=== PATIENT | female | born 1955 | race Caucasian/White ===

== ENCOUNTER 2017-05-11 16:38 | Emergency (ER) | payer OTHER, BC ==
--- NOTE | 2017-05-11 18:00 | EDM.PDOC ---
ED HPI GENERAL MEDICAL PROBLEM - General Chief Complaint: Lower Extremity Injury/Pain Stated Complaint: PT HURT LT KNEE AT WORK Time Seen by Provider: 05/11/17 16:57 Source of Information: Reports: Patient History Limitations: Reports: No Limitations - History of Present Illness INITIAL COMMENTS - FREE TEXT/NARRATIVE: History of present illness: []Patient was twirling a hula hoop on her right leg while holding her left leg up. She lost her balance and slipped almost doing the splits. She had sudden pain on her left medial knee. She is able to bear weight and walk however when she puts any twisting motion while standing she has severe pain in the medial part of her knee radiating to her thigh or calf. Review of systems: As per history of present illness and below otherwise all systems reviewed and negative. Past medical history: As per history of present illness and as reviewed below otherwise noncontributory. Surgical history: As per history of present illness and as reviewed below otherwise noncontributory. Social history: No reported history of drug or alcohol abuse. Family history: As per history of present illness and as reviewed below otherwise noncontributory. Physical exam: General: Well developed, well nourished in NAD HEENT: Atraumatic, normocephalic, pupils reactive, negative for conjunctival pallor or scleral icterus, mucous membranes moist, throat clear, neck supple, nontender, trachea midline. Lungs: Clear to auscultation, breath sounds equal bilaterally, chest nontender. Heart: S1S2, regular, negative for clicks, rubs, or JVD. Abdomen: Soft, nondistended, nontender. Negative for masses or hepatosplenomegaly. Negative for costovertebral tenderness. Pelvis: Stable nontender. Genitourinary: Deferred. Rectal: Deferred. Extremities: Atraumatic, negative for cords or calf pain. Neurovascular unremarkable. Neuro: Awake, alert, oriented. Cranial nerves II through XII unremarkable. Cerebellum unremarkable. Motor and sensory unremarkable throughout. Exam nonfocal. Diagnostics: []X-ray knee negative Therapeutics: []Knee immobilizer Impression: []Soft tissue injury left knee left Plan: []Knee immobilizer, anti-inflammatories and ice follow-up with Dr. Bartlett Definitive disposition and diagnosis as appropriate pending reevaluation and review of above. Left Posterior Knee Pain Score (Numeric/FACES): 5 - Related Data Allergies Allergy/AdvReac Type Severity Reaction Status Date / Time Penicillins Allergy Cannot Verified 05/11/17 17:20 Remember Home Meds: Home Meds Aspirin 81 mg PO DAILY 05/11/17 [History] Lisinopril 10 mg PO DAILY 05/11/17 [History] Meloxicam 5 g PO DAILY 05/11/17 [History] Review of Systems - Review of Systems Review Of Systems: See Below ED EXAM, GENERAL - Physical Exam Exam: See Below (See history of present illness) Course - Vital Signs Last Recorded V/S: Last Vital Signs Temp 36.4 C 05/11/17 17:17 Pulse 91 05/11/17 17:17 Resp 19 05/11/17 17:17 BP 143/72 H 05/11/17 17:17 Pulse Ox 97 05/11/17 17:17 - Orders/Labs/Meds Orders: Active Orders 24 hr Category Date Time Status Immobilizer [RC] ASDIRECTED Care 05/11/17 17:43 Active Knee 3V Lt [CR] Stat Exams 05/11/17 17:29 Taken Departure - Departure Time of Disposition: 18:05 Disposition: Home, Self-Care 01 Condition: Good Clinical Impression: Left knee sprain Qualifiers: Encounter type: initial encounter Involved ligament of knee: unspecified ligament Qualified Code(s): S83.92XA - Sprain of unspecified site of left knee, initial encounter - Discharge Information Referrals: PCP,None [Primary Care Provider] - Forms: ED Department Discharge Additional Instructions: The following information is given to patients seen in the emergency department who are being discharged to home. This information is to outline your options for follow-up care. We provide all patients seen in our emergency department with a follow-up referral. The need for follow-up, as well as the timing and circumstances, are variable depending upon the specifics of your emergency department visit. If you don't have a primary care physician on staff, we will provide you with a referral. We always advise you to contact your personal physician following an emergency department visit to inform them of the circumstance of the visit and for follow-up with them and/or the need for any referrals to a consulting specialist. The emergency department will also refer you to a specialist when appropriate. This referral assures that you have the opportunity for follow-up care with a specialist. All of these measure are taken in an effort to provide you with optimal care, which includes your follow-up. Under all circumstances we always encourage you to contact your private physician who remains a resource for coordinating your care. When calling for follow-up care, please make the office aware that this follow-up is from your recent emergency room visit. If for any reason you are refused follow-up, please contact the [facility] at and asked to speak to the emergency department charge nurse. Ice, Motrin for pain and wear immobilizer, light duty until evaluated by orthopedic. Follow-up with orthopedics: [facility] [address], [address] [place] [address] - My Orders Last 24 Hours: My Active Orders 05/11/17 17:29 Knee 3V Lt [CR] Stat 05/11/17 17:43 Immobilizer [RC] ASDIRECTED - Assessment/Plan Last 24 Hours: My Active Orders 05/11/17 17:29 Knee 3V Lt [CR] Stat 05/11/17 17:43 Immobilizer [RC] ASDIRECTED
[2017-05-11 18:24] VITALS: BP 133/73
--- NOTE | 2017-05-12 10:42 | CR ---
EXAM DATE: 05/11/17 PATIENT'S AGE: 62 [facility] Facility: [place], [place] Site . Site : [id number] Study: XRay Knee Left [id number]/19/2017 5:58:36 PM Ordering Physician: Oscar Lester Final Report: INDICATION: Twisting injury. TECHNIQUE: Knee radiographs 3 views COMPARISON: None FINDINGS: Bones: Alignment is normal. No acute fractures or aggressive osseous lesions seen. Joint spaces: No significant joint effusion is seen. The joint spaces of the medial, lateral, and patellofemoral compartments are unremarkable. Soft tissues: Unremarkable. No radiopaque foreign bodies are noted. IMPRESSION: 1. No acute osseous injuries are identified. Dictated by Jarret Valerio MD @ 05/11/2017 6:35:00 PM Dictated by: Jarret Valerio MD @ 05/11/2017 18:35:11 (Electronic Signature) Report Signed by Proxy. [facility] SERVICES[facility]hoebe
== END 2017-05-11 18:20 | disposition home or self-care (01) ==
LOC: MW.ED 16:38
DX: S83.92XA Sprain of unspecified site of left knee, initial encounter (principal); Z79.82 Long term (current) use of aspirin; Z79.899 Other long term (current) drug therapy; Z88.0 Allergy status to penicillin; X58.XXXA Exposure to other specified factors, initial encounter; Y93.89 Activity, other specified; Y99.0 Civilian activity done for income or pay
CPT/HCPCS: 73562-26-LT; 73562-LT; 99282; 99283

== ENCOUNTER 2017-07-19 11:31 | Day surgery (SDC) | payer OTHER ==
[~2017-07-19 11:31] MED LIST: Acetaminophen/HYDROcodone 325-5 MG Tab PO PRN; Clindamycin Phosphate in D5W 600 MG in Premix Bag 50 BAG IV SCH; Lactated Ringers 1,000 ML IV SCH
[2017-07-19] MEDS ORDERED: fentaNYL 100 MCG/2 ML SDV ONE (11:47)
[2017-07-19] MEDS ORDERED: Propofol 200 MG/20 ML SDV ONE (11:47)
[2017-07-19] MEDS ORDERED: Midazolam 1 MG/ML 2 ML SDV ONE (11:48)
[2017-07-19] MEDS ORDERED: Dexamethasone 4 MG/ML 5 ML MDV ONE (11:48)
[2017-07-19] MEDS ORDERED: Ondansetron 4 MG/2 ML SDV ONE (11:48)
--- NOTE | 2017-07-19 12:08 | PCM.PREANE ---
Preanesthetic Assessment - Anesthesia/Transfusion/Family Hx Anesthesia History: Prior Anesthesia Without Reaction Family History of Anesthesia Reaction: No Transfusion History: No Prior Transfusion(s) - Review of Systems General: No Symptoms Pulmonary: No Symptoms Cardiovascular: No Symptoms Gastrointestinal: No Symptoms Neurological: No Symptoms Other: Reports: None - Physical Assessment NPO Status Date: 07/18/17 Height: 1.57 m Weight: 79.379 kg ASA Class: 2 Mental Status: Alert & Oriented x3 Airway Class: Mallampati = 2 Dentition: Reports: Normal Dentition ROM/Head Extension: Full Lungs: Clear to Auscultation, Normal Respiratory Effort Cardiovascular: Regular Rate, Regular Rhythm - Allergies Allergies/Adverse Reactions: Allergies Allergy/AdvReac Type Severity Reaction Status Date / Time Penicillins Allergy Cannot Verified 07/13/17 13:57 Remember - Anesthesia Plan Pre-Op Medication Ordered: None - Acknowledgements Anesthesia Type Planned: General Anesthesia Pt an Appropriate Candidate for the Planned Anesthesia: Yes Alternatives and Risks of Anesthesia Discussed w Pt/Guardian: Yes Pt/Guardian Understands and Agrees with Anesthesia Plan: Yes Additional Comments: PMH: htn, seasonal allergies, hx of menieres PreAnesthesia Questionnaire - Past Health History Medical/Surgical History: Denies Medical/Surgical History Other HEENT History: wears glasses Cardiovascular History: Reports: Hypertension Genitourinary History: Reports: None 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 Musculoskeletal History: Reports: Arthritis, Other (See Below) Other Musculoskeletal History: has had multiple cortisone injections for bursitis Endocrine/Metabolic History: Reports: Obesity/BMI 30+ - Past Surgical History HEENT Surgical History: Reports: Naso-Sinus Surgery Female Surgical History: Reports: Section, Hysterectomy, Salpingo- Oophorectomy - SUBSTANCE USE Smoking Status *Q: Never Smoker Second Hand Smoke Exposure: No Recreational Drug Use History: No - HOME MEDS Home Medications: Home Meds Aspirin 81 mg PO DAILY 05/11/17 [History] Lisinopril 10 mg PO DAILY 05/11/17 [History] Meloxicam 15 mg PO DAILY 05/11/17 [History] - CURRENT (IN HOUSE) MEDS Current Meds: Current Medications Hydrocodone Bitart/Acetaminophen ([place] 325-5 Mg) 1 - 2 tab PO Q4H PRN PRN Reason: Pain Lactated Ringer's (Ringers, Lactated) 1,000 mls @ 100 mls/hr IV ASDIRECTED MARTINA Clindamycin Phosphate 600 mg/ (Premix) 50 mls @ 100 mls/hr IV ONCALL MARTINA Discontinued Medications Dexamethasone (Dexamethasone) Confirm Administered Dose 20 mg .ROUTE .STK-MED ONE Stop: 07/19/17 11:49 Fentanyl (Sublimaze) Confirm Administered Dose 100 mcg .ROUTE .STK-MED ONE Stop: 07/19/17 11:48 Lidocaine HCl (Xylocaine-Mpf 1%) Confirm Administered Dose 5 ml .ROUTE .STK-MED ONE Stop: 07/19/17 11:49 Midazolam HCl (Versed 1 Mg/Ml) Confirm Administered Dose 2 mg .ROUTE .STK-MED ONE Stop: 07/19/17 11:49 Ondansetron HCl (Zofran) Confirm Administered Dose 4 mg .ROUTE .STK-MED ONE Stop: 07/19/17 11:49 Propofol (Diprivan 20 Ml) Confirm Administered Dose 200 mg .ROUTE .STK-MED ONE Stop: 07/19/17 11:48
[2017-07-19] MEDS ORDERED: Lidocaine 1% 20 ML MDV ONE (12:26)
--- NOTE | 2017-07-19 13:52 | PCM.OPNOTE ---
- General Post-Op/Procedure Note Date of Surgery/Procedure: 07/19/17 Operative Procedure(s): left knee scope with PLL, excision of medial plica Post-Op Diagnosis: L knee lateral meniscus tear, ACL tear, medial plica Primary Surgeon: Lizzie Bartlett Pigs Feet Cleaner: Bari Tracey in mLs: 10 Condition: Good Free Text/Narrative:: tt=14 min #[id number]
[2017-07-19] MEDS: fentaNYL 100 MCG/2 ML SDV IVPUSH PRN ×2 (14:20→14:28)
--- NOTE | 2017-07-19 15:52 | PCM.POSTAN ---
POST ANESTHESIA ASSESSMENT - MENTAL STATUS Mental Status: Alert, Oriented - RESPIRATORY Respiratory Status: Respiratory Rate WNL, Airway Patent, O2 Saturation Stable - CARDIOVASCULAR CV Status: Pulse Rate WNL, Blood Pressure Stable - GASTROINTESTINAL GI Status: No Symptoms - POST OP HYDRATION Hydration Status: Adequate & Stable
--- NOTE | 2017-07-19 15:52 | PCM48HPAN ---
Post Anesthesia Note - EVALUATION WITHIN 48HRS OF ANESTHETIC Vital Signs in Normal Range: Yes Patient Participated in Evaluation: Yes Respiratory Function Stable: Yes Airway Patent: Yes Cardiovascular Function Stable: Yes Hydration Status Stable: Yes Pain Control Satisfactory: Yes Nausea and Vomiting Control Satisfactory: Yes Mental Status Recovered: Yes
[2017-07-19 16:29] VITALS: BP 122/67
--- NOTE | 2017-07-19 18:46 | OR ---
SURGEON: Lizzie Bartlett MD DATE OF PROCEDURE: 07/19/2017 PREOPERATIVE DIAGNOSES: 1. Left knee lateral meniscus tear. 2. Left knee ACL tear. POSTOPERATIVE DIAGNOSES: 1. Left knee lateral meniscus tear. 2. Left knee ACL tear. 3. Left knee medial plica. PROCEDURE: Left knee arthroscopy with partial lateral meniscectomy and excision of medial plica. GLASS PROCESSING WORKER: Bari Tracey PA-C. ANESTHESIA: General. ESTIMATED BLOOD LOSS: 5 mL. TOURNIQUET TIME: 14 minutes. COMPLICATIONS: None. DVT PROPHYLAXIS: Not indicated. IMPLANTS USED: None. BRIEF HISTORY: Kourtney is a 62-year-old female, who injured her left knee while jumping over a hula hoop. An MRI confirmed a tear of her ACL along with a lateral meniscus tear. Due to her lack of response to conservative treatment, I did recommend surgical intervention. The risks and goals of procedure were discussed with the patient and were documented preoperatively. She agreed to proceed. DESCRIPTION OF PROCEDURE: The patient was properly identified and brought to the operating room. She was transferred from the OR cart and placed on the operating table in supine position. General anesthesia was administered. After adequate anesthesia was obtained, a well-padded tourniquet was applied to the left lower extremity. Pivot-shift test was performed which did show some laxity of the ACL. The left lower extremity was then prepped in standard fashion using ChloraPrep solution. It was then sterilely draped. A time-out was performed to ensure correct site and procedure. Preoperative antibiotics were given. The surgical site had been marked preoperatively. An Esmarch was used to exsanguinate the left lower extremity and the tourniquet was inflated to 250 mmHg. A lateral portal arthrotomy was established. Blunt trocar and cannula were introduced into the suprapatellar pouch. Camera, inflow, and outflow were assembled. No significant synovitis was noted. The patellofemoral joint was visualized. The patella appeared to track centrally. No degenerative changes were noted. I then extended down the lateral gutter. No loose bodies were identified. As I extended down the medial gutter, she was found to have a large plica. This was observed as the knee was taken through flexion-extension and appeared to be wearing on the medial femoral condyle. I was able to get passes then extended down the medial gutter. No loose bodies were identified. I then entered the medial compartment. A medial portal arthrotomy was established. A blunt probe was inserted. The meniscus was extensively probed. No tearing was noted. The chondral surfaces showed evidence of grade 1 chondromalacia only. I then entered the notch. The PCL was visualized and probed and found to be stable. The ACL appeared to be scarred to the PCL. There was a small area of attachment that remained along the medial portion of the lateral femoral condyle. The ACL was probed and appeared to have some laxity associated with it. There did not appear to be any evidence of joint impingement and it was left intact. I then entered the lateral compartment. A large radial tear of the lateral meniscus was noted. Using a combination of biters and bruno, this was resected back to a stable remnant. The joint surfaces showed no significant degenerative findings. I then re-entered the patellofemoral joint. The plica was able to be excised with no difficulty using a shaver. No further impingement was noted as the knee was taken through flexion-extension. The instruments were then removed from the knee. The portal sites were closed with 3-0 nylon. Lidocaine 1% was injected along the portal tracts. Xeroform gauze was placed over the wound and a bulky dressing was applied. She was awakened from her anesthetic and transferred back to the operating room cart. She was brought to recovery room in stable condition. All needle and sponge counts were correct. MAXWELL / FARHAD /[id number]
== END 2017-07-19 16:05 | disposition home or self-care (01) ==
LOC: MW.SDS 11:31
PROVIDERS: ATTEND Orthopaedic Surgery
DX: S83.282A Other tear of lateral meniscus, current injury, left knee, initial encounter (principal); S83.512A Sprain of anterior cruciate ligament of left knee, initial encounter; M67.52 Plica syndrome, left knee; M94.262 Chondromalacia, left knee; I10 Essential (primary) hypertension; E66.9 Obesity, unspecified; Y30.XXXA Falling, jumping or pushed from a high place, undetermined intent, initial encounter; Z68.32 Body mass index [BMI] 32.0-32.9, adult; Z88.0 Allergy status to penicillin; Z79.82 Long term (current) use of aspirin; Z79.1 Long term (current) use of non-steroidal anti-inflammatories (NSAID); Z79.899 Other long term (current) drug therapy; Z98.890 Other specified postprocedural states; Z90.710 Acquired absence of both cervix and uterus
CPT/HCPCS: 29881; A9270; J1100; J2250; J2405; J3010; J7120; 01400; 88304; J2704